=== PATIENT | female | born 1950 | race Caucasian/White ===

== ENCOUNTER 2023-09-14 08:37 | Emergency (ER) | payer MEDICARE, SELFPAY ==
[2023-09-14 08:46] VITALS: BP 156/89
--- NOTE | 2023-09-14 08:52 | ED.GENMED ---
History of Present Illness
General
Chief Complaint: Breathing Problem
Time Seen by Provider: 09/14/23 08:52
Travel History
Have you had any contact with someone who has COVID-19?: No
Do you have any symptoms of coronavirus? Fever > 100 degrees, chills, cough, shortness of breath, sore throat, loss of taste or smell, muscle aches, or headache?: No
History of Present Illness
History of Present Illness:
HPI: Patient presents with palpitations and chills intermittently occurring primarily with exertion over the past 1 week. She was concerned about an infection. She has had a wedge resection of the lung related to esophageal cancer with mets to the
lung approximately 17 years ago. She has no ongoing shortness of breath. She has had ongoing chills. She currently does not have any palpitations.
EXAM:
GENERAL: Well appearing in no distress, blood pressure slightly elevated, room air sats 98%
HEENT: Moist oral mucosa
CARDIOVASCULAR: No murmurs, normal heart rate, regular rhythm, No chest wall tenderness
PULMONARY: No respiratory distress, breath sounds are clear and equal
ABDOMEN: Soft with no peritoneal signs, no tenderness
NEUROLOGIC: Excellent strength all extremities, no coordination deficits
PSYCHIATRIC: Appropriate mental status, normal insight and judgement
EXTREMITIES: Nontender, no edema, moves all extremities equally
SKIN: Surgical scar noted to the right posterolateral chest wall
TIME OF INITIAL ENCOUNTER: 9 AM
NUMBER AND COMPLEXITY OF PROBLEMS ADDRESSED AT THE ENCOUNTER
� Chronic conditions affecting care: Former smoker with chronic cough, esophageal cancer with mets to lung 2005, wedge resection of lung 2006, hyperlipidemia, high blood pressure, GERD
� Acute Exacerbation and/or Progression of Chronic Illness: This is an acute problem
� Differential Diagnosis includes: Viral syndrome, pneumonia, electrolyte abnormality, heart failure, ACS unlikely, vital signs not consistent with PE
AMOUNT AND/OR COMPLEXITY OF DATA TO BE REVIEWED AND ANALYZED
� I performed an independent evaluation of and my interpretation is:
EKG: Sinus 72, leftward axis deviation, no acute ST abnormality
CT:
X-rays: Chest x-ray unremarkable
Laboratory Studies: White count normal with mild lymphocytopenia, hemoglobin 14, chemistries relatively unremarkable however BUN to creatinine ratio slightly elevated, lactic is reassuring at 0.6, BNP is only 188, troponin
unremarkable, 1+ leukocyte esterase on urinalysis, COVID and flu negative
Other:
� Review of other/old records: Echo report from 04/02/2023 shows normal systolic function with EF of 55 to 60% and normal diastolic function, pedunculated small mobile echodensity noted in the right ventricle again seen in
comparison to 2019 study
� Clinical information was obtained by an independent historian: None needed, but I did at bedside
� Prescriptions/Medications Considered but not given:
� Further testing considered but not performed:
RISK OF COMPLICATIONS AND/OR MORBIDITY OR MORTALITY OF PATIENT MANAGEMENT
� Social determinants of health affecting care: Lives at home
� Discussion with other providers:
� Escalation of care including admission/observation vs risk of discharge considered: The patient presents with palpitations and chills. Initial vital signs relatively unremarkable with exception of mild hypertension. Chest
x-ray and basic labs are reassuring. On reassessment at 10:40 AM, the patient appears comfortable. ED workup is unremarkable. I recommend that she follows up with cardiology for consideration of repeat echo and palpitations.
Past History
Past History
ED Past Medical History: Cancer (esophageal cancer with mets to lung), GERD, HTN and Hypercholesterolemia
ED Past Surgical History: , Gynecological and Other (Esophagectomy with rib removal on the right, lung resection)
Social History
Tobacco: Non-smoker
Alcohol: Daily (wine or [place] )
Drug: None
Personal:
Living: with family
Employment: Not employed
Family History
Family History: Other (Noncontributory)
Phy Exam
Physical Exam
Physical Exam:
See HPI
Scores
Heart Failure Risk
Heart Failure Risk Score: Not Applicable
Course
Orders/Labs/Results
Orders:
Orders
09/14/23 08:48
Electrocardiogram (*1) Urgent
Reason for Study: Shortness of Breath
EKG- Treatment ONCE
09/14/23 09:03
CR Chest - 2 Views Urgent
Comment:
Reason For Exam: chills, has had wedge resection
09/14/23 09:06
COVID-19 Antigen Urgent
Source: Nasal Swab
Complete Blood Count/With Diff Urgent
Comprehensive Metabolic Panel Urgent
Lactic Acid Q4H
Comment: CANCEL 2nd LACTIC ACID IF 1st LACTIC ACID IS LESS THAN 2
Magnesium Urgent
NT-proBNP Urgent
Troponin I Urgent
Blood Culture Q30M
EDITH Source: Blood/Venous
Specimen Description:
Influenza A+B Rapid Molecular Urgent
EDITH Source: Nasal Swab
Specimen Description:
09/14/23 09:27
Urinalysis Reflex To Culture Urgent
Date Specimen was Collected: 09/14/23
Time Specimen was Collected: 09:22
Urine Microscopic Reflex Cult Urgent
Blood Culture Q30M
EDITH Source: Blood/Venous
Specimen Description:
Urine Culture Urgent
EDITH Source: U
Specimen Description:
Obtained by: Random
Date Specimen was Collected: 09/14/23
Time Specimen was Collected: 09:22
09/14/23 13:15
Lactic Acid Q4H
Comment: CANCEL 2nd LACTIC ACID IF 1st LACTIC ACID IS LESS THAN 2
Abnormal Lab Results
09/14/23 09/14/23
09:06 09:27
RBC 4.19 L 10^6/uL
(4.20-5.40)
MCH 33.4 H pg
(27.0-31.0)
Absolute Neuts (auto) 6.7 H 10^3/uL
(1.4-6.5)
Absolute Monos (auto) 1.2 H 10^3/uL
(0.1-0.6)
Lymphocytes % 16.8 L %
(20.5-51.1)
Monocytes % 12.0 H %
(1.7-9.3)
Carbon Dioxide 31 H mmol/L
(22-30)
BUN 27 H mg/dl
(7-17)
Glucose 104 H mg/dl
(70-99)
Lactic Acid 0.6 L mmol/L
(0.7-2.0)
Calcium 10.8 H mg/dl
(8.4-10.2)
Leukocyte Esterase Rfl 1+ A
(Negative)
09/14/23 09:06
09/14/23 09:06
Vital Signs
Initial and Last Documented VS:
Initial Vital Signs
Temp Pulse Resp BP Pulse Ox
98.4 F 81 16 156/89 98
09/14/23 08:46 09/14/23 08:46 09/14/23 08:46 09/14/23 08:46 09/14/23 08:46
Last Documented Vital Signs
Temp Pulse Resp BP Pulse Ox
98.4 F 81 16 156/89 98
09/14/23 08:46 09/14/23 08:46 09/14/23 08:46 09/14/23 08:46 09/14/23 08:46
*Critical Care Note
Total Time (30-74mins, 75-104mins- exclusive of procedures): Not Applicable
ED Attending Note
-
Portions of this chart may have been created with voice recognition software.� Occasional wrong word or��sound alike� substitutions may have occurred due to the inherent limitations of voice recognition software.
Discharge Plan
Departure
Patient Disposition: Home (Routine Discharge)
Date of Disposition: 09/14/23
Time of Disposition: 10:41
Patient with high blood pressure during this ER visit?: Yes
Discharge Problem:
Palpitations
Instructions: Palpitations ED
Prescriptions:
No Action
omeprazole 20 MG capsule,delayed release(DR/EC)
20 mg PO DAILY
losartan 50 MG tablet
50 mg PO DAILY
vitamin B complex [B Complete] Tablet
1 tab PO DAILY
rosuvastatin [Crestor] 10 mg Tablet
10 mg PO DAILY
cranberry 450 mg Tablet
450 mg PO DAILY
Referrals:
Tomas Lucio PA-C [Family Provider] -
Zuleyma Grigsby DO [Active] - Follow up in 2-3 days
Activity Restrictions/Additional Instructions:
I recommend that you follow-up with Dr. Grigsby. Basic blood work is unremarkable and chest x-ray and EKG are clear. Blood cultures are currently pending. COVID and flu testing are negative.
Interventions
Interventions:
*ED COVID-19 Vaccine History Last Done: 09/14/23 08:46
Discharge Date and Time
Print Language: [id number]
[2023-09-14 09:28] LABS: Hematocrit 40.2 % (37.0-47.0); Mean Corp Hgb Conc. 34.8 g/dL (33.0-37.0); Mean Corpuscular Hgb 33.4 pg (27.0-31.0); Mean Corpuscular Volume 95.9 fL (81.0-99.0); Red Blood Cell Count 4.19 10^6/uL (4.20-5.40); White Blood Cell Count 9.7 10^3/uL (4.8-10.8)
[2023-09-14 09:29] LABS: % Basophils 0.4 % (0-2); % Eosinophils 1.4 % (0-6); % Immature Granulocytes 0.1 % (0-0.5); % Lymphocytes 16.8 % (20.5-51.1); % Neutrophils 69.3 % (42.2-75.2); Absolute Eosinophils 0.1 10^3/uL (0-0.7); Absolute Lymphocytes 1.6 10^3/uL (1.2-3.4); Absolute Monocytes 1.2 10^3/uL (0.1-0.6); Absolute Neutrophils 6.7 10^3/uL (1.4-6.5); Mean Platelet Volume 9.5 fL (7.4-10.4); Nucleated Red Blood Cells % 0 %; Platelet Count 206 10^3/uL (130-400)
[2023-09-14 09:44] LABS: COVID-19 Antigen Negative (Negative)
[2023-09-14 09:45] LABS: Urine Albumin Negative (Neg - Trace); Urine Bilirubin Negative (Negative); Urine Character Clear (Clear); Urine Color Yellow; Urine Glucose Negative (Negative); Urine Ketone Negative (Negative); Urine Leukocyte 1+ (Negative); Urine Nitrite Negative (Negative); Urine Occult Blood Negative (Negative); Urine Specific Gravity 1.015 (<1.030); Urine Urobilinogen Negative (Neg - 1+)
[2023-09-14 09:45] LABS: ALT (SGPT) 21 U/L (0-35); AST (SGOT) 32 U/L (14-36); Albumin 4.5 g/dl (3.5-5.0); Alkaline Phosphatase 71 U/L (38-126); Blood Urea Nitrogen 27 mg/dl (7-17); Calcium 10.8 mg/dl (8.4-10.2); Carbon Dioxide 31 mmol/L (22-30); Chloride 98 mmol/L (98-107); Glucose 104 mg/dl (70-99); Magnesium 1.8 mg/dl (1.6-2.3); Potassium 4.9 mmol/L (3.5-5.1); Sodium 136 mmol/L (135-145); Total Bilirubin 0.9 mg/dl (0.2-1.3); Total Protein 7.4 g/dl (6.3-8.2); eGFR > 60.00
[2023-09-14 09:46] LABS: Lactic Acid 0.6 mmol/L (0.7-2.0)
[2023-09-14 09:55] LABS: NT-proBNP 188 pg/ml; Troponin I < 0.012 ng/ml
[2023-09-14 10:58] LABS: Urine Red Blood Cell 0-2 /HPF (0-2)
== END 2023-09-14 10:51 | disposition home or self-care (01) ==
LOC: EMR 08:37
PROVIDERS: EMERGENCY PHYSICIAN Emergency Medicine; FAMILY PHYSICIAN Physician Assistant Medical
DX: R00.2 Palpitations (principal); R68.83 Chills (without fever); C78.00 Secondary malignant neoplasm of unspecified lung; K21.9 Gastro-esophageal reflux disease without esophagitis; I10 Essential (primary) hypertension; Z11.52 Encounter for screening for COVID-19; Z85.01 Personal history of malignant neoplasm of esophagus; Z87.891 Personal history of nicotine dependence
CPT/HCPCS: 99285; 71046; 80053; 81003; 81015; 83605; 83735; 83880; 84484; 85025; 87040; 87086; 87502; 87811; 93005

== ENCOUNTER → 2023-09-18 09:25 | Outpatient (REF) | payer MEDICARE, SELFPAY | LOC: RAD 09:25 | PROVIDERS: ATTENDING PHYSICIAN Physician Assistant Medical | DX: Z87.891 Personal history of nicotine dependence (principal) | CPT/HCPCS: 76770 ==

== ENCOUNTER → 2023-09-29 10:08 | Outpatient (REF) | payer MEDICARE, SELFPAY | LOC: HWRAD 10:08 | PROVIDERS: ATTENDING PHYSICIAN Physician Assistant Medical | DX: R05.1 Acute cough (principal) | CPT/HCPCS: 71046 ==

== ENCOUNTER → 2024-04-05 13:05 | Outpatient (REF) | payer MEDICARE, SELFPAY | LOC: HWWDC 13:05 | PROVIDERS: ATTENDING PHYSICIAN Physician Assistant Medical | DX: Z12.31 Encounter for screening mammogram for malignant neoplasm of breast (principal) | CPT/HCPCS: 77063; 77067 ==

== ENCOUNTER → 2024-05-12 06:27 | Day surgery (SDC) | payer MEDICARE, SELFPAY | LOC: GI 06:27 | PROVIDERS: ATTENDING PHYSICIAN Internal Medicine | DX: R12 Heartburn (principal); K63.89 Other specified diseases of intestine; K29.70 Gastritis, unspecified, without bleeding; K29.50 Unspecified chronic gastritis without bleeding; Z98.890 Other specified postprocedural states; Z85.01 Personal history of malignant neoplasm of esophagus | CPT/HCPCS: 43239; 88305; 88342 ==

== ENCOUNTER → 2025-03-10 14:51 | Outpatient (REF) | payer MEDICARE, SELFPAY | LOC: HWRAD 14:51 | PROVIDERS: ATTENDING PHYSICIAN Urology; FAMILY PHYSICIAN Physician Assistant Medical | DX: N20.0 Calculus of kidney (principal) | CPT/HCPCS: 76775 ==